=== PATIENT | female | born 1940 | race Caucasian/White ===

== ENCOUNTER → 2018-01-24 | Outpatient (CLI) | payer MEDICARE, BC ==
[2018-01-24 14:43] LABS: HEMATOCRIT 42.8 % (36.0-47.0); HEMOGLOBIN 14.3 g/dl (12.0-15.5); MEAN CORPUSCULAR HEMOGLOBIN 31.4 pg (27.0-33.0); MEAN CORPUSCULAR HGB CONC 33.4 g/dl (32.0-36.5); MEAN CORPUSCULAR VOLUME 93.9 fl (80.0-96.0); PLATELET COUNT, AUTOMATED 291 10^3/uL (150-450); RED BLOOD COUNT 4.56 10^6/uL (4.00-5.40); RED CELL DISTRIBUTION WIDTH 12.9 % (11.5-14.5)
[2018-01-24 14:56] LABS: INR 0.96; PROTHROMBIN TIME 12.9 SECONDS (12.1-14.4)
[2018-01-24 15:07] LABS: ALBUMIN 3.8 GM/DL (3.2-5.2); ALBUMIN/GLOBULIN RATIO 1.09 (1.00-1.93); ALKALINE PHOSPHATASE 76 U/L (45-117); ALT/SGPT 34 U/L (12-78); ANION GAP 8 MEQ/L (8-16); AST/SGOT 33 U/L (7-37); BILIRUBIN,TOTAL 0.5 MG/DL (0.2-1.0); BLOOD UREA NITROGEN 25 MG/DL (7-18); CALCIUM LEVEL 9.8 MG/DL (8.8-10.2); CARBON DIOXIDE LEVEL 29 MEQ/L (21-32); CHLORIDE LEVEL 104 MEQ/L (98-107); CREATININE FOR GFR 1.13 MG/DL (0.55-1.30); GLOMERULAR FILTRATION RATE 49.7 (>39); GLUCOSE, FASTING 123 MG/DL (70-100); POTASSIUM SERUM 3.6 MEQ/L (3.5-5.1); SODIUM LEVEL 141 MEQ/L (136-145); TOTAL PROTEIN 7.3 GM/DL (6.4-8.2)
[2018-01-24 15:19] LABS: ERYTHROCYTE SEDIMENTATION RATE 7 mm/hr (0-30)
== END ==
LOC: M LAB 14:01
DX: Z01.818 Encounter for other preprocedural examination (principal); M17.12 Unilateral primary osteoarthritis, left knee
CPT/HCPCS: 71046

== ENCOUNTER 2018-02-13 08:18 | Inpatient (IN) | payer MEDICARE, BC ==
[2018-02-13] MEDS ORDERED: ceFAZolin 2 GM/D5W 50 ML IV BAG (J0690 PER 500MG) As Ordered (08:57)
[2018-02-13] MEDS ORDERED: LIDOCAINE 2% INJ 100 MG/5 ML SDV (FOR ANES.) As Ordered (09:08)
[2018-02-13] MEDS ORDERED: dexameTHASONE 4 MG/ML 1ML VIAL (J1100) As Ordered (09:09)
[2018-02-13] MEDS ORDERED: fentaNYL 100 MCG/2 ML INJECTION (J3010) As Ordered ×2 (09:09→10:47)
[2018-02-13] MEDS ORDERED: PROPOFOL 500 MG/50 ML VIAL As Ordered (09:09)
[2018-02-13] MEDS ORDERED: PHENYLephrine HCL 500 MCG/5 ML (100MCG/ML) SYRINGE (J2370) As Ordered (09:09)
[2018-02-13] MEDS ORDERED: ONDANSETRON 4MG/2ML VIAL (J2405) As Ordered (09:09)
[2018-02-13] MEDS ORDERED: MIDAZOLAM INJ 2 MG/2 ML VIAL (J2250) As Ordered ×2 (09:09→10:47)
[2018-02-13 09:14] LABS: GLUCOSE, FASTING 84 MG/DL (70-100)
[2018-02-13] MEDS ORDERED: BUPIVACAINE/DEXTROSE 0.75% 2 ML AMP As Ordered (09:14)
[2018-02-13] MEDS: LR 1,000 ML IV ×4 (09:17→23:36)
[2018-02-13] MEDS: fentaNYL 100 MCG/2 ML INJECTION (J3010) IV (12:05)
[2018-02-13] MEDS: MIDAZOLAM INJ 2 MG/2 ML VIAL (J2250) IV (12:05)
[2018-02-13] MEDS ORDERED: PHENYLEPHRINE INJ 10MG/ML VIAL (J2370) As Ordered (13:14)
[2018-02-13] MEDS: ceFAZolin 1GM INJ (J0690 PER 500MG) As Ordered (13:33)
[2018-02-13] MEDS: EPINEPHrine INJ 1 MG/ML 1ML AMP As Ordered (14:02)
[2018-02-13] MEDS: TRANEXAMIC ACID 100 MG/ML 10ML VIAL As Ordered (14:03)
[2018-02-13] MEDS: BUPIVACAINE LIPOSOME/PF 1.3% 20ML VIAL (13.3MG/ML)(EXPAREL)(C9290 PER1MG) As Ordered (14:04)
[2018-02-13] MEDS ORDERED: MORPHINE 1MG/ML IN 0.9% NACL 100ML IV BAG As Ordered (14:30)
[2018-02-13] MEDS: MORPHINE 1MG/ML IN 0.9% NACL 100ML IV BAG IV (14:40)
[2018-02-13] MEDS ORDERED: NALBUPHINE HCL 10 MG/ML AMP (J2300) IV (14:45)
[2018-02-13] MEDS ORDERED: NALOXONE INJ 0.4 MG/1 ML VIAL (J2310) IV (14:45)
[2018-02-13] MEDS ORDERED: fentaNYL 100 MCG/2 ML INJECTION (J3010) IV (14:45)
[2018-02-13] MEDS ORDERED: MORPHINE 10 MG/ML 1ML VIAL (J2270) IV (14:45)
[2018-02-13] MEDS ORDERED: ACETAMINOPHEN TAB 650MG DOSE (2X325MG) PO (14:45)
[2018-02-13] MEDS ORDERED: EPIDURAL/PCA KEYS XX (14:45)
[2018-02-13] MEDS ORDERED: PERCOCET 5MG/325MG TAB PO (14:45)
[2018-02-13] MEDS ORDERED: diphenhydrAMINE INJ 50MG/ML VIAL (J1200) IV (14:45)
[2018-02-13] MEDS ORDERED: METOCLOPRAMIDE INJ 10MG/2ML VIAL (J2765) IV (14:45)
[2018-02-13] MEDS ORDERED: ONDANSETRON 4MG/2ML VIAL (J2405) IV ×3 (14:45)
[2018-02-13] MEDS ORDERED: FLEET ENEMA PR (14:45)
[2018-02-13] MEDS ORDERED: DEXTROSE 50% 50 ML SYRINGE IV (16:15)
[2018-02-13] MEDS ORDERED: GLUCOSE 4 GM CHEW TABLET PO (16:15)
[2018-02-13] MEDS ORDERED: GLUCAGON FOR INJ 1 MG VIAL (J1610) SC (16:15)
[2018-02-13] MEDS: HumaLOG INSULIN (NovoLOG) PER UNIT SC ×2 (18:05→22:11)
[2018-02-13] MEDS: ROSUVASTATIN 10 MG TAB (CRESTOR) PO (21:00)
[2018-02-13 21:16] LABS: BEDSIDE GLUCOSE 322 MG/DL (83-110)
[2018-02-13] MEDS: DYAZIDE 37.5/25 CAP (TRIAM/HCTZ) PO (22:10)
[2018-02-14] MEDS ORDERED: PERCOCET 5MG/325MG TAB PO (06:30)
[2018-02-14] MEDS ORDERED: ONDANSETRON 4 MG TAB (S0181) PO (06:30)
[2018-02-14 06:41] LABS: HEMATOCRIT 33.6 % (36.0-47.0); HEMOGLOBIN 11.5 g/dl (12.0-15.5); MEAN CORPUSCULAR HEMOGLOBIN 31.9 pg (27.0-33.0); MEAN CORPUSCULAR HGB CONC 34.2 g/dl (32.0-36.5); MEAN CORPUSCULAR VOLUME 93.3 fl (80.0-96.0); PLATELET COUNT, AUTOMATED 254 10^3/uL (150-450); WHITE BLOOD COUNT 13.2 10^3/uL (4.0-10.0)
[2018-02-14 07:04] LABS: ANION GAP 8 MEQ/L (8-16); BLOOD UREA NITROGEN 27 MG/DL (7-18); CALCIUM LEVEL 8.9 MG/DL (8.8-10.2); CARBON DIOXIDE LEVEL 26 MEQ/L (21-32); CHLORIDE LEVEL 101 MEQ/L (98-107); CREATININE FOR GFR 1.48 MG/DL (0.55-1.30); GLOMERULAR FILTRATION RATE 36.4 (>39); GLUCOSE, FASTING 209 MG/DL (70-100); POTASSIUM SERUM 3.7 MEQ/L (3.5-5.1); SODIUM LEVEL 135 MEQ/L (136-145)
[2018-02-14] MEDS: HumaLOG INSULIN (NovoLOG) PER UNIT SC ×2 (08:19→12:00)
[2018-02-14] MEDS: ASPIRIN 81 MG ENTERIC TAB PO (08:20)
[2018-02-14] MEDS: FENOFIBRATE 48 MG TAB (TRICOR) PO (08:20)
[2018-02-14] MEDS: PANTOPRAZOLE 40MG TAB (PROTONIX) PO (08:21)
[2018-02-14] MEDS: MIRALAX *UNIT DOSE* 17GM PACKET PO (08:21)
[2018-02-14] MEDS: CARVedilol 6.25 MG TAB PO (08:21)
[2018-02-14] MEDS: SENOKOT S TAB PO (08:21)
[2018-02-14] MEDS: MOM 30ML SUSPENSION UDC PO (08:21)
[2018-02-14] MEDS: PERCOCET 5MG/325MG TAB PO (08:22)
[2018-02-14] MEDS ORDERED: LOSARTAN 25 MG TAB PO (09:00)
[2018-02-14] MEDS ORDERED: RIVAROXABAN 10 MG TAB (XARELTO) PO (18:00)
[2018-02-14 19:27] LABS: BEDSIDE GLUCOSE 232 MG/DL (83-110)
[2018-02-14] MEDS ORDERED: ASPIRIN 81 MG ENTERIC TAB PO (21:00)
== END 2018-02-14 12:30 | disposition home or self-care (01) | DRG 470 ==
LOC: M OR 08:18 → M MS5PR 15:05
PROVIDERS: Orthopaedic Surgery
PROC: 0SRD0J9 Replacement of Left Knee Joint with Synthetic Substitute, Cemented, Open Approach (ICD-10-PCS; principal; 2018-02-13 11:00)
DX: M17.12 Unilateral primary osteoarthritis, left knee (principal); Z79.899 Other long term (current) drug therapy; Z79.82 Long term (current) use of aspirin; I11.0 Hypertensive heart disease with heart failure; E78.5 Hyperlipidemia, unspecified; I50.9 Heart failure, unspecified; E11.9 Type 2 diabetes mellitus without complications; I25.10 Atherosclerotic heart disease of native coronary artery without angina pectoris; K21.9 Gastro-esophageal reflux disease without esophagitis; Z88.6 Allergy status to analgesic agent

== ENCOUNTER → 2020-02-02 | Outpatient (CLI) | payer MEDICARE, BC ==
[~2020-02-02] MED LIST: ASPI81TA26 PO; CORE10CA PO; CRES20TA2 PO; FENO48TA7 PO; GLYB25TA PO; LOSA25TA14 PO; METF10004 PO; NEXI40CA PO; PERC5TAB12 PO; TRIA37.5 PO; XARE10TA PO
--- NOTE | 2020-02-02 09:29 | REP ---
INDICATION: RT KNEE OSTEOARTHRITIS; PREOP LAB AND EKG FIRST THEN XR. COMPARISON: 01/24/2018 TECHNIQUE: Two views FINDINGS: Some eventration of the right diaphragm anteriorly again seen and unchanged. No pleural effusion, lateral pleural thickening, apical scarring or pneumothorax no consolidation, nodule or mass. Heart, mediastinal and hilar contours are normal. The aorta is calcified at the arch mildly tortuous but unchanged. Airway intact. Bony thorax shows no compression deformity or focal lesion. No free air under the diaphragm. IMPRESSION: 1. No acute cardiopulmonary change. Stable chest. <Electronically signed by Jose Dennis > 02/02/20 [id number]
[2020-02-02 09:30] LABS: HEMATOCRIT 42.5 % (36.0-47.0); HEMOGLOBIN 13.7 g/dl (12.0-15.5); MEAN CORPUSCULAR HEMOGLOBIN 30.6 pg (27.0-33.0); MEAN CORPUSCULAR HGB CONC 32.2 g/dl (32.0-36.5); MEAN CORPUSCULAR VOLUME 94.9 fl (80.0-96.0); PLATELET COUNT, AUTOMATED 305 10^3/uL (150-450); RED BLOOD COUNT 4.48 10^6/uL (4.00-5.40)
[2020-02-02 09:48] LABS: INR 0.92; PROTHROMBIN TIME 12.6 SECONDS (12.5-14.3)
[2020-02-02 09:56] LABS: ALBUMIN 3.8 GM/DL (3.2-5.2); BILIRUBIN,TOTAL 0.5 MG/DL (0.2-1.0); CALCIUM LEVEL 9.7 MG/DL (8.8-10.2); CREATININE FOR GFR 1.01 MG/DL (0.55-1.30); GLOMERULAR FILTRATION RATE 56.3 (>39); POTASSIUM SERUM 4.1 MEQ/L (3.5-5.1); TOTAL PROTEIN 7.3 GM/DL (6.4-8.2)
[2020-02-02 10:03] LABS: ERYTHROCYTE SEDIMENTATION RATE 7 mm/hr (0-30)
--- NOTE | 2020-02-03 05:42 | ECGEPIP ---
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
== END ==
LOC: M LAB 08:47
PROVIDERS: ATTEND Orthopaedic Surgery
DX: M17.11 Unilateral primary osteoarthritis, right knee (principal)

== ENCOUNTER → 2020-02-12 | Outpatient (CLI) | payer MEDICARE, BC ==
[~2020-02-12] MED LIST changes: +ASPI81CH33 PO; +ATOR40TA75 PO; +EZET10TA21 PO; +IBUP-1114 PO; +LOSA50TA88 PO; +MULT1TAB42 PO
== END ==
LOC: M LABSMTC 10:51
PROVIDERS: ATTEND Anesthesiology
DX: Z01.812 Encounter for preprocedural laboratory examination (principal); Z20.828 Contact with and (suspected) exposure to other viral communicable diseases

== ENCOUNTER 2020-02-17 13:00 | Inpatient (IN) | payer MEDICARE, BC ==
--- NOTE | 2020-02-13 11:12 | HPE ---
DATE OF ANTICIPATED ADMISSION: 02/17/2020 ATTENDING PHYSICIAN: Malvin Dela Cruz MD. CHIEF COMPLAINT: Right knee pain and stiffness. HISTORY: This is a 79-year-old female patient with progressive worsening right knee pain and stiffness. She failed to improve with conservative management. She has elected for surgery for her continued symptoms. She has pain with weightbearing activities and activities of daily living. She has been consented by Dr. Dela Cruz for a right total knee arthroplasty. X-rays noted for end-stage degenerative changes of the right knee. Medical optimization with Dr. Hubbard. CURRENT MEDICATIONS: Include: * Aspirin 81 mg, 1 tablet once per day. She knows to discontinue that 5 days prior to surgery. * Atorvastatin 40 mg, 1 tablet once per day. * Carvedilol extended release 10 mg, 1 tablet once per day. * Esomeprazole 40 mg, 1 tablet once per day. * Zetia 10 mg, 1 tablet once per day. * TriCor 48 mg, 1 tablet once per day. * Glyburide 2.5 mg, 1 tablet once per day. * Losartan 50 mg, 1 tablet once per day. * Metformin 1000 mg, 1 tablet once per day. MEDICAL CONDITIONS: Include: 1. Allergic rhinitis. 2. Coronary artery disease. 3. Diabetes. 4. Gastric reflux. 5. Hyperlipidemia. 6. Hypertension. 7. Intermittent hypoglycemia. 8. Symptomatic osteoarthritis of the right knee. SURGICAL HISTORY: Includes: 1. Total knee replacement on the left side. 2. Heart stents. 3. Carpal tunnel release. 4. Hysterectomy. 5. Knee scopes of both knees. 6. Trigger finger release. FAMILY HISTORY: Hypertension, diabetes, arthritis. SOCIAL HISTORY: She does not smoke, she denies alcohol. She is retired. REVIEW OF SYSTEMS: Denies fever or chills. Denies chest pain, shortness of breath or cough. Denies difficulty breathing. Denies abdominal pain. Denies nausea or vomiting. Notes persistent pain in her right knee with weightbearing activities and activities of daily living. Denies exposure to COVID-19. PHYSICAL EXAMINATION: Exam today reveals a well-developed, well-nourished female patient. She ambulates with a slight limping gait favoring her right knee. She does not use assistive devices. Her mood and affect are appropriate for the situation. Exam of the knee reveals skin to be intact. No erythema, edema or ecchymosis. Near full range of motion of the knee with irritability at the extremes range of motion. The skin around the knee is intact. The calf is soft, nontender to palpation. It is a well perfused right lower extremity. Neck: Supple without adenopathy or JVD. Lungs: Clear to auscultation without rales or wheeze. Heart: Regular rate and rhythm. Height 61 inches, weight 148 pounds, temperature 96.6, blood pressure 142/82, pulse 76, respirations 16. IMPRESSION: Symptomatic osteoarthritis of the right knee. IMAGING: Chest x-ray: No acute cardiopulmonary disease process noted. EKG: Sinus rhythm by report. LABORATORY DATA: ProTime 12.6. INR 0.92. Glucose 103, BUN 23, creatinine 1, sodium 144, potassium 4.1. Sedimentation rate 7, WBC count 6, RBC count 4.4, hemoglobin 13.7, hematocrit 42.5. PLAN: She was consented by Dr. Dela Cruz for a right total knee arthroplasty. We discussed the pre and post-operative instructions. We went over her medications. We discussed the aspirin stopping 5 days prior to surgery, no NSAIDs 5 days prior to surgery and we discussed what NSAIDs were. We went over being on time for her surgery and the current visitation policy, that she should self quarantine after the COVID test. We also discussed n.p.o. and what n.p.o. entails. KYLE
[~2020-02-17] VITALS: Ht 154.9 cm; Wt 71.2 kg
--- NOTE | 2020-03-11 10:54 | HPE ---
HISTORY AND PHYSICAL DATE OF ADMISSION: 03/22/2020 ATTENDING: Dr. Malvin Dela Cruz CHIEF COMPLAINT: Right knee pain and stiffness. HISTORY OF PRESENT ILLNESS: This is a 79-year-old female patient with progressively worsening right knee pain and stiffness. She continues to have troubles with normal day-to-day activities. She has pain with weightbearing activities and morning stiffness. She has elected for surgery for her continued symptoms. She has been consented by Dr. Dela Cruz for a right total knee arthroplasty. X-rays are notable for end-stage degenerative changes of the right knee. Medical optimization: ____. CURRENT MEDICATIONS: Include: - aspirin 81 mg once per day. She knows to discontinue that 5 days prior to surgery. - atorvastatin 40 mg one tablet once per day - carvedilol extended release 10 mg one tablet once per day - esomeprazole 40 mg one tablet once per day - Zetia 10 mg one tablet once per day - TriCor 48 mg one tablet once per day - glyburide 2.5 mg one tablet once per day - losartan 50 mg one tablet once per day - metformin 1000 mg one tablet once per day MEDICAL HISTORY: Includes allergic rhinitis, coronary artery disease, diabetes, gastric reflux disease, elevated lipids, hypertension, intermittent hypoglycemia, symptomatic osteoarthritis of the right knee. PRIOR SURGERIES: Include total knee arthroplasty on the left side, heart stents, carpal tunnel release, hysterectomy, bilateral knee scopes, trigger finger release. FAMILY HISTORY: Hypertension, arthritis and diabetes. SOCIAL HISTORY: She denies alcohol use. She does not smoke. She is retired. REVIEW OF SYSTEMS: Denies fever or chills. Denies chest pain, shortness of breath or cough. Denies difficulty breathing. Denies abdominal pain. Denies nausea or vomiting. Notes persistent pain in her right knee with weightbearing activities and activities of daily living. Denies recent exposure to COVID-19. Though, she has been on quarantine now for two weeks. PHYSICAL EXAMINATION: Reveals an alert, well-nourished, well-developed female patient. She ambulates with a slight limp and gait favoring the right side. She does not use assistive devices. Mood and affect appropriate for the situation. She sits comfortably on the exam room table. The skin around the knee is intact. No erythema, edema or ecchymosis. There is irritability at extremes of range of motion. On exam, tenderness mainly medially to well perfused lower extremity. The calf is soft and nontender to palpation. Sensation is intact. Neck is supple without jugular venous distension (JVD) or adenopathy. Lungs are clear to auscultation without rales or wheeze. Heart: regular rate and rhythm. Current vital signs: Height 61 inches. Weight 149 pounds. Temperature 97.1. Blood pressure 118/78. Pulse 64. Respirations 17. BMI of 28. Chest x-ray: No acute cardiopulmonary disease process noted. EKG: Sinus rhythm. A repeat of laboratory data from 03/08/2020 noted a prothrombin time of 12.9, INR 0.95, sed rate of 6. WBC count of 6, RBC count of 4.5, hemoglobin 14.1, hematocrit 42.7. Glucose 113, BUN 27, creatinine 0.99, sodium 143, potassium 4.1. IMPRESSION: Symptomatic osteoarthritis of the right knee. PLAN: She has been consented by Dr. Dela Cruz for a right total knee arthroplasty. We once again reviewed her pre- and postoperative instructions. I went over her medications. She understands that stopping her aspirin five days prior to surgery. Other medications taken only as directed by her primary. She understands the self-quarantine after a COVID test. She knows to call the hospital, in her case would be on the 17 of March as the hospital will be closed for the four days for the holiday. She understands that COVID statistics are changing and it is possible we may not be able to do elective surgery, so she understands that as well. She understands no NSAIDs prior to surgery for five days, and she understands what NPO means. She understands being on time and the importance of being on time for appointments. Dr. Malvin Dela Cruz
[2020-03-22] MEDS ORDERED: ceFAZolin SOD 2 GM in IV 1 EA IV ONE (07:00)
[2020-03-22] MEDS ORDERED: LR 1,000 ML IV ONE (07:00)
[2020-03-22] MEDS ORDERED: MIDAZOLAM INJ 2MG/2ML VIAL (J2250 PER 1MG) IV PRN (07:01)
[2020-03-22] MEDS ORDERED: TRANEXAMIC ACID 100 MG/ML 10ML VIAL As Ordered ONE (07:08)
[2020-03-22] MEDS ORDERED: ceFAZolin 1GM VIAL (J0690 PER 500MG) As Ordered ONE (07:09)
[2020-03-22] MEDS ORDERED: BUPIVACAINE LIPOSOME/PF 1.3% 20ML VIAL (13.3MG/ML)(EXPAREL)(C9290 PER1MG) As Ordered ONE (07:09)
[2020-03-22] MEDS ORDERED: EPINEPHrine INJ 1 MG/ML 1ML AMP As Ordered ONE (07:09)
[2020-03-22] MEDS: fentaNYL 100 MCG/2 ML INJECTION (J3010) IV PRN ×2 (07:27→16:23)
[2020-03-22] MEDS ORDERED: dexameTHASONE 10MG/1ML VIAL PRES.FREE (J1100 PER 1MG) XX ONE (07:30)
[2020-03-22] MEDS ORDERED: EPINEPHrine INJ 1 MG/ML 1ML AMP XX ONE (07:30)
[2020-03-22] MEDS ORDERED: ROPIvacaine 0.5% 30ML INJECTION (J2795 PER 1MG) XX ONE (07:30)
[2020-03-22] MEDS ORDERED: BUPIVACAINE HCL 0.25% 10ML VIAL As Ordered ONE (07:54)
--- NOTE | 2020-03-22 08:14 | IPN ---
PROGRESS NOTE DATE: 03/22/2020 Patient seen and examined. She wishes to go ahead with a right total knee arthroplasty. She understands the nature of this; the risks of bleeding, infection, damage to nerves and vessels, persistent pain, wear, loosing, blood clots, medical problems, and among others. She has been through a left knee replacement in the past.
[2020-03-22] MEDS ORDERED: fentaNYL 100 MCG/2 ML INJECTION (J3010) As Ordered ONE (08:19)
[2020-03-22] MEDS ORDERED: MIDAZOLAM INJ 2MG/2ML VIAL (J2250 PER 1MG) As Ordered ONE (08:19)
[2020-03-22] MEDS ORDERED: propofoL 200 MG/20 ML VIAL As Ordered ONE (08:19)
[2020-03-22] MEDS ORDERED: ePHEDrine SULFATE 25 MG/5 ML(5MG/ML) SYRINGE As Ordered ONE (08:34)
[2020-03-22] MEDS: CARVedilol 6.25 MG TAB PO SCH ×2 (09:00→20:15)
[2020-03-22] MEDS ORDERED: METOCLOPRAMIDE INJ 10MG/2ML VIAL (J2765 PER 1) IV PRN (09:30)
[2020-03-22] MEDS ORDERED: fentaNYL 100 MCG/2 ML INJECTION (J3010) IV PRN ×2 (09:30→12:30)
[2020-03-22] MEDS ORDERED: LR 1,000 ML IV SCH ×2 (09:30)
[2020-03-22] MEDS ORDERED: MORPHINE 4 MG/ML 1ML VIAL/SYRINGE (J2270) IV PRN (09:30)
[2020-03-22] MEDS ORDERED: oxyCODONE 5MG TAB PO PRN (09:30)
[2020-03-22] MEDS ORDERED: ONDANSETRON 4MG/2ML VIAL IV PRN ×2 (09:30)
[2020-03-22] MEDS ORDERED: MORPHINE 2 MG/ML 1ML VIAL (J2270) IV PRN ×2 (09:30)
[2020-03-22] MEDS ORDERED: ACETAMINOPHEN TAB 650MG DOSE (2X325MG) PO PRN (09:30)
--- NOTE | 2020-03-22 09:43 | REP ---
INDICATION: POST NEW KNEE COMPARISON: None. TECHNIQUE: AP and cross-table lateral views. FINDINGS: Normal appearance and positioning to the femoral and tibial components. Overlying postsurgical changes and skin linda noted. IMPRESSION: Status post right knee replacement. Satisfactory positioning. <Electronically signed by Arnulfo Jade > 03/22/20 [id number]
[2020-03-22] MEDS ORDERED: hydrALAZINE 20MG/ML 1ML VIAL (J0360 PER 20MG) As Ordered ONE (10:22)
[2020-03-22] MEDS: hydrALAZINE 20MG/ML 1ML VIAL (J0360 PER 20MG) IV SCH ×2 (10:25→10:30)
--- NOTE | 2020-03-22 10:31 | RO ---
OPERATIVE NOTE DATE OF OPERATION: 03/22/2020 PREOPERATIVE DIAGNOSIS: Right knee osteoarthritis. POSTOPERATIVE DIAGNOSIS: Right knee osteoarthritis. PROCEDURE: Right total knee arthroplasty using an Attune rotating platform, size 4 femur, size 4 tibia, 10 polyethylene, 35 patellar button. SURGEON: Malvin Dela Cruz MD DAIRY PROCESSING SUPERVISOR: Luca Campbell PA-C ANESTHESIA: Spinal. EBL: 50. COMPLICATIONS: None. PROCEDURE: The patient was taken to the operating room and placed in the supine position after spinal anesthesia was induced. The right lower extremity was prepped and draped in the usual sterile fashion. A time out was performed. Tourniquet was inflated. A longitudinal incision was made over the anterior aspect of the knee. A medial parapatellar arthrotomy was performed per routine. I everted the patella, flexed the knee up, removed some osteophytes and used the canal-initiating reamer on the femoral side followed by the intramedullary guide set at 9 mm cut and 5 degrees of valgus. This was pinned into place and distal femoral cut was made protecting soft tissues. I then sized the femur to be a 4. The remaining cuts were made. I then prepared the tibia and retractors were placed. Tibial alignment guide was placed in the appropriate amount of valgus and posterior slop and this was pinned in place at about 3-4 mm off the low side which was the medial side and the proximal tibial cut. The medial side was a little bit on the sclerotic side so I did have to shave that down a slight bit more. The manufacturing support engineer was used to remove soft tissue and osteophytes from either side of the knee. There was a large loose body posteriorly. I then prepared the sulcus cut with the guide and the saw and the tibial tray size 4 fit nicely. This was pinned in place, drilled, broached and the trial components were placed. Prior to that I had used spacer blocks and decided size 10 was most appropriate in flexion and extension and PCL was intact. I then had placed the trial components and the range of motion and stability was excellent. The soft tissue balance was excellent and the alignment was excellent. I then free-hand cut the patella, removing about 7 mm of bone, sized to be a 35. The drill holes were placed and the drill holes were placed at the end of the femur. The printer floor covering assistant prepared the bone cement in modern technique. I then removed the trial components, irrigated copiously and placed Exparel and Marcaine in the posterior capsule and around the periosteum and soft tissues. The surfaces had been copiously irrigated. I cemented in all the components, removed excess bone cement and then began closing the deep layer with #1 Vicryl suture, placed TXA deep in the wound. I then used running Stratafix, irrigated, closed the remaining wound with #1 Stratafix after removing the patellar clamp once the cement had hardened. I then put the knee through range of motion, there was no clicking or catching, good alignment, good motion noted. The subcu was closed with 2-0 Vicryl, we irrigated at each level, the skin was closed with linda. Tourniquet was deflated once the cement had hardened. She was taken to the recovery room in stable condition. There were no known complications. The plan will be routine postop. The printer floor covering assistant was instrumental in holding retractors and assisting in mixing the bone cement and assisting in wound closure.
[2020-03-22] MEDS ORDERED: MIDAZOLAM INJ 2MG/2ML VIAL (J2250 PER 1MG) IV ONE (11:00)
[2020-03-22 13:30] VITALS: BP 160/81
[2020-03-22] MEDS ORDERED: GLUCOSE 4GM CHEW TABLET PO PRN (13:30)
[2020-03-22] MEDS ORDERED: DEXTROSE 50% 50 ML SYRINGE IV PRN (13:30)
[2020-03-22] MEDS ORDERED: GLUCAGON INJ 1MG VIAL SC PRN (13:30)
--- NOTE | 2020-03-22 13:33 | CR.PDOC ---
General Date of Consultation: Mar 22, 2020 Consultation REASON FOR CONSULTATION/CHIEF COMPLAINT: Right knee arthroplasty HISTORY OF PRESENT ILLNESS: Patient is 79 years old female with past medical history of coronary artery diseases, diabetes mellitus, hyperlipidemia, hypertension presented hospital for elective right knee replacement. The surgical procedure was done on 03/22/20. After the surgery patient developed urinary retention, straight cath was done. Patient denied fever, chills, nausea, vomiting, chest pain, palpitations, diarrhea ALLERGIES: Please see below. HOME MEDICATIONS: Please see below. PAST MEDICAL HISTORY: 1. Allergic rhinitis. 2. Coronary artery disease. 3. Diabetes. 4. Gastric reflux. 5. Hyperlipidemia. 6. Hypertension. 7. Intermittent hypoglycemia. 8. Symptomatic osteoarthritis of the right knee. PAST SURGICAL HISTORY: 1. Total knee replacement on the left side. 2. Heart stents. 3. Carpal tunnel release. 4. Hysterectomy. 5. Knee scopes of both knees. 6. Trigger finger release. FAMILY HISTORY: Hypertension, diabetes, arthritis. SOCIAL HISTORY: Patient denied smoking, EtOH abuse or drug abuse history REVIEW OF SYSTEMS: 10 points review system negative except as listed above PHYSICAL EXAMINATION: VITAL SIGNS: Please see below. GENERAL APPEARANCE: NAD HEENT: no scleral icterus, no JVD, EOMI CARDIOVASCULAR: S1S2 LUNGS: CTA ABDOMEN: soft & not tender w palpitation MUSCULOSKELETAL: no cyanosis, no swelling INTEGUMENT: no generalized palor NEUROLOGICAL: cranial nerve function from 2-12 intact intact, follows commands, speech not dysarthric LABORATORY DATA: Please see below. ASSESSMENT/PLAN: Patient is 79 years old female with past medical history of coronary artery diseases, diabetes mellitus, hyperlipidemia, hypertension presented hospital for elective right knee replacement. The surgical procedure was done on 03/22/20. After the surgery patient developed urinary retention, straight cath was done. Patient denied fever, chills, nausea, vomiting, chest pain, palpitations, diarrhea Status post right knee arthroplasty Pain management Anticoagulation per orthopedic team Hyperlipidemia Continue statin Hypertension/coronary artery diseases Continue home cardioprotective medications Blood pressure control Diabetes type 2 Diabetes diet Insulin sliding scale GERD Continue PPI Vital Signs/I&O Vital Signs Date Time Temp Pulse Resp B/P (MAP) Pulse Ox O2 Delivery O2 Flow Rate FiO2 03/22/20 12:38 18 03/22/20 12:00 87 136/76 (96) 96 Room Air 03/22/20 10:50 97.4 03/22/20 07:40 3 Laboratory Data Labs 24H Laboratory Tests 2 03/22/20 07:02: Bedside Glucose ([facility] Panel) 125H Allergies Coded Allergies: ENVIROMENTAL (Verified Allergy, Intermediate, 03/15/20) Home Medications Scheduled Aspirin (Aspirin) 81 Mg Tab.chew, 81 MG PO DAILY, (Reported) Atorvastatin Calcium (Atorvastatin Calcium) 40 Mg Tablet, 40 MG PO DAILY, (Rep orted) Carvedilol Phosphate (Coreg Cr) 10 Mg Cap, 10 MG PO DAILY, (Reported) Esomeprazole Magnesium (Nexium) 40 Mg Cap, 40 MG PO DAILY, (Reported) Ezetimibe (Ezetimibe) 10 Mg Tablet, 10 MG PO DAILY, (Reported) Fenofibrate Nanocrystallized (Fenofibrate) 48 Mg Tab, 48 MG PO DAILY, (Reported) Glyburide (Glyburide) 2.5 Mg Tab, 2.5 MG PO DAILY, (Reported) Ibuprofen (Ibuprofen) 400 Mg Tablet, 400 MG PO PRN, (Reported) Losartan Potassium (Losartan Potassium) 50 Mg Tablet, 50 MG PO DAILY, (Reported) Metformin HCl (Metformin HCl) 1,000 Mg Tab, 1,000 MG PO DAILY, (Reported) with biggest meal Miscellaneous Medications Mv-Min/Iron/Folic/Calcium/Vitk (Women's Multivitamin Tablet) 1 Each Tablet, 1 TAB PO, (Reported) JEFFRY WRIGHT DO Mar 22, 2020 13:33
[2020-03-22 14:30] VITALS: BP 160/83
[2020-03-22 15:30] VITALS: BP 152/84
[2020-03-22 16:30] VITALS: BP 163/85
[2020-03-22] MEDS: LOSARTAN 50MG TABLET PO SCH (17:06)
[2020-03-22] MEDS: ceFAZolin SOD 2 GM in IV 1 EA IV SCH (17:06)
[2020-03-22] MEDS: PERCOCET 5MG/325MG TAB PO PRN (17:06)
[2020-03-22] MEDS: EZETIMIBE 10 MG TAB (ZETIA) PO SCH (17:06)
[2020-03-22] MEDS: HumaLOG INSULIN (NovoLOG) PER UNIT SC SCH (18:02)
[2020-03-22] MEDS ORDERED: HumaLOG INSULIN (NovoLOG) PER UNIT SC SCH (21:00)
[2020-03-22 22:00] VITALS: BP 122/67
[2020-03-23] MEDS: ceFAZolin SOD 2 GM in IV 1 EA IV SCH (00:06)
[2020-03-23] MEDS: PERCOCET 5MG/325MG TAB PO PRN (00:07)
[2020-03-23 02:00] VITALS: BP 142/62
[2020-03-23] MEDS ORDERED: PERCOCET 5MG/325MG TAB PO PRN (02:15)
[2020-03-23 06:00] VITALS: BP 136/63
[2020-03-23 06:52] LABS: HEMATOCRIT 35.5 % (36.0-47.0); HEMOGLOBIN 11.6 g/dl (12.0-15.5); MEAN CORPUSCULAR HEMOGLOBIN 30.5 pg (27.0-33.0); MEAN CORPUSCULAR HGB CONC 32.7 g/dl (32.0-36.5); MEAN CORPUSCULAR VOLUME 93.4 fl (80.0-96.0); PLATELET COUNT, AUTOMATED 303 10^3/uL (150-450); WHITE BLOOD COUNT 11.3 10^3/uL (4.0-10.0)
[2020-03-23] MEDS ORDERED: PERC5TAB12 PO (07:02)
[2020-03-23] MEDS ORDERED: XARE10TA PO (07:02)
[2020-03-23] MEDS: HumaLOG INSULIN (NovoLOG) PER UNIT SC SCH (08:36)
[2020-03-23 08:37] VITALS: BP 136/63
[2020-03-23] MEDS: CARVedilol 6.25 MG TAB PO SCH (08:37)
[2020-03-23] MEDS: EZETIMIBE 10 MG TAB (ZETIA) PO SCH (08:37)
[2020-03-23] MEDS: LOSARTAN 50MG TABLET PO SCH (08:38)
[2020-03-23] MEDS ORDERED: FENOFIBRATE 48 MG TAB (TRICOR) PO SCH (09:00)
[2020-03-23] MEDS ORDERED: MOM 30ML SUSPENSION UDC PO SCH (09:00)
[2020-03-23] MEDS ORDERED: ATORVASTATIN 20 MG TAB PO SCH (09:00)
[2020-03-23] MEDS ORDERED: PANTOPRAZOLE 40MG TAB (PROTONIX) PO SCH (09:00)
[2020-03-23] MEDS ORDERED: MIRALAX *UNIT DOSE* 17GM PACKET PO SCH (09:00)
[2020-03-23] MEDS ORDERED: ASPIRIN 81 MG CHEW TABLET PO SCH (09:00)
[2020-03-23 10:00] VITALS: BP 143/74
[2020-03-23] MEDS ORDERED: RIVAROXABAN 10 MG TAB (XARELTO) PO SCH (18:00)
--- NOTE | 2020-03-25 11:01 | DSES ---
DISCHARGE SUMMARY DATE OF ADMISSION: 03/22/2020 DATE OF DISCHARGE: 03/23/2020 ADMISSION DIAGNOSIS: Right knee osteoarthritis. OTHER DIAGNOSES: 1. Allergic rhinitis. 2. Coronary artery disease. 3. Diabetes. 4. Gastroesophageal reflux disease. 5. Hyperlipidemia. 6. Hypertension. 7. Intermittent hypoglycemia. DISCHARGE DIAGNOSIS: Right knee osteoarthritis status post right total knee arthroplasty. BRIEF HISTORY: The patient is a 79-year-old female that had progressively worsening right knee pain and stiffness. She failed to improve with conservative measures. She continued to have symptoms with weightbearing activities and activities of daily living. She consented for an elective right total knee arthroplasty with Dr. Dela Cruz for her continued symptoms. HOSPITAL COURSE: The patient underwent a right total knee arthroplasty under spinal anesthesia, which was uneventful. Her hospital course was without complication, and she was up with physical therapy per their protocol weightbearing as tolerated on the right lower extremity. DISCHARGE DISPOSITION: The patient was discharged on oral pain medications and will resume her preoperative medications and diet. She will use her anticoagulant and thromboembolic deterrent stockings as directed to prevent deep vein thrombosis. The patient will follow-up in our off in 12-14 days for a wound check and staple removal. She is encouraged to contact our office sooner if there is any increase in pain, redness, drainage, numbness, or tingling in the extremity; fever greater than 101 degrees or any other concerns. Please see medical records for additional details.
== END 2020-03-23 12:00 | disposition home or self-care (01) | DRG 470 ==
LOC: M OR 03-22 05:57 → M MS5PR 03-22 13:30
PROVIDERS: ADMIT Orthopaedic Surgery; ATTEND Orthopaedic Surgery
PROC: 0SRC0J9 Replacement of Right Knee Joint with Synthetic Substitute, Cemented, Open Approach (ICD-10-PCS; principal; 2020-03-22 07:30)
DX: M17.11 Unilateral primary osteoarthritis, right knee (principal); I25.10 Atherosclerotic heart disease of native coronary artery without angina pectoris; E11.9 Type 2 diabetes mellitus without complications; K21.9 Gastro-esophageal reflux disease without esophagitis; I10 Essential (primary) hypertension; Z95.2 Presence of prosthetic heart valve; Z79.82 Long term (current) use of aspirin; Z79.899 Other long term (current) drug therapy; E78.5 Hyperlipidemia, unspecified

== ENCOUNTER → 2020-03-17 | Outpatient (CLI) | payer MEDICARE, BC | LOC: M LABSMTC 09:52 | PROVIDERS: ATTEND Anesthesiology | DX: Z01.812 Encounter for preprocedural laboratory examination (principal); Z20.828 Contact with and (suspected) exposure to other viral communicable diseases ==